=== PATIENT | female | born 1955 | race African-American/Black ===

== ENCOUNTER 2021-06-26 02:00 | Emergency (ER) | payer OTHER ==
[~2021-06-26] VITALS: Ht 167.6 cm; Wt 83.9 kg
[2021-06-26 02:08] VITALS: BP 149/79
--- NOTE | 2021-06-26 02:20 | NUR ---
PT BROUGHT TO BED 4 VIA WHEELCHAIR
--- NOTE | 2021-06-26 02:30 | NUR ---
PT. IS A 65 Y/O FEMALE THAT CAME INTO ED WITH C/O OF BURNING SENSATION UPON URINATION AND LOWER ABDOMINAL PAIN. PT. STATES THAT THE PAIN STARTED TONIGHT AND DESCRIBES IT "BURNING SENSATION WHEN URINATING." PT. RATES PAIN AT 8/10 ON THE PAIN SCALE AT THIS TIME. PT. ALSO STATES IT RADIATES TO HER LOWER BACK. DENIES N/V/D/FEVER. SKIN IS PINK/WARM/DRY; AAOX4 WITH EVEN AND STEADY GAIT; HR EVEN AND REGULAR; PT DENIES ANY FEVER, CP, SOB, OR COUGH AT THIS TIME; VSS; PATIENT POSITIONED FOR COMFORT; HOB ELEVATED; BEDRAILS UP X2; BED DOWN. ER MD MADE AWARE OF PT STATUS. MED HX: DENIES ALLERGIES: NKA
--- NOTE | 2021-06-26 02:45 | NUR ---
PT. AMBULATED TO BATHROOM WITH EVEN AND STEADY GAIT
[2021-06-26] MEDS ORDERED: CEPH-588 PO (02:59)
[2021-06-26] MEDS ORDERED: PHEN-1877 PO (02:59)
[2021-06-26] MEDS ORDERED: LIDOCAINE MPF 1% 5 ML ONE (03:00)
[2021-06-26] MEDS ORDERED: MAGNESIUM CITRATE 300 ML BTL PO ONE (03:00)
[2021-06-26] MEDS ORDERED: cefTRIAXone 1,000 MG VIAL ONE (03:00)
[2021-06-26] MEDS ORDERED: cefTRIAXone 1,000 MG in LIDOCAINE MPF 1% 2.1 ML IM ONE (03:00)
[2021-06-26 03:23] VITALS: BP 149/79
--- NOTE | 2021-06-26 03:23 | NUR ---
Patient discharged with v/s stable. Written and verbal after care instructions given and explained. Patient alert, oriented and verbalized understanding of instructions. Wheel Chair Assisted TO SISTER'S CAR. All questions addressed prior to discharge. ID band removed. Patient advised to follow up with PMD. Rx of KEFLEC AND PYRIDIUM given. Patient educated on indication of medication including possible reaction and side effects. Opportunity to ask questions provided and answered.
== END 2021-06-26 03:23 | disposition home or self-care (01) ==
LOC: MED 02:00
DX: K59.00 Constipation, unspecified (principal); R30.0 Dysuria; R35.0 Frequency of micturition; Z79.899 Other long term (current) drug therapy
CPT/HCPCS: 96372; 99283; J0696; J2001

== ENCOUNTER 2021-09-17 15:51 | Emergency (ER) | payer OTHER ==
[~2021-09-17] VITALS: Ht 167.6 cm; Wt 79.4 kg
[~2021-09-17 15:51] MED LIST: CEPH-588 PO; PHEN-1877 PO
[2021-09-17 15:57] VITALS: BP 113/65
[2021-09-17] MEDS ORDERED: ACETAMINOPHEN 325 MG TAB PO ONE (16:25)
[2021-09-17] MEDS ORDERED: MAGNESIUM HYDROXIDE 2400 MG/30 ML UDC PO ONE (16:25)
--- NOTE | 2021-09-17 16:46 | NUR ---
pt c/o generlalized weakness x2 days with poor po intake d/t nausea and no apetite. pt also reports no bm x1 week.
--- NOTE | 2021-09-17 17:25 | NUR ---
pt resting in [facility] pending ct and dispo.
[2021-09-17] MEDS ORDERED: KETOROLAC 30 MG/ML VIAL IVP ONE (18:00)
[2021-09-17 18:23] LABS: BASOPHILS % (AUTO) 0.4 % (0.0-2.0); EOSINOPHILS % (AUTO) 0.1 % (0.0-4.0); HEMATOCRIT 35.8 % (36-48); HEMOGLOBIN 11.8 g/dL (12.0-16.0); LYMPHOCYTES # (AUTO) 0.9 K/uL (2.5-16.5); LYMPHOCYTES % (AUTO) 14.4 % (20.5-51.1); MEAN CORPUSCULAR HEMOGLOBIN 29 pg (27-31); MEAN CORPUSCULAR HGB CONC 33 g/dL (33-37); MEAN CORPUSCULAR VOLUME 88.8 fL (80-94); MONOCYTES # (AUTO) 0.6 K/uL (0.8-1.0); MONOCYTES % (AUTO) 9.2 % (1.7-9.3); NEUTROPHILS # (AUTO) 4.9 K/uL (1.8-7.7); NEUTROPHILS % (AUTO) 75.9 % (42.2-75.2); PLATELET COUNT (AUTO) 235 K/uL (140-450); RED BLOOD CELL COUNT(AUTO) 4.03 MIL/uL (4.20-5.40); RED CELL DISTRIBUTION WIDTH 14.4 % (11.6-13.7); WHITE BLOOD COUNT (AUTO) 6.4 K/uL (4.8-10.8)
[2021-09-17 18:31] LABS: ALBUMIN 4.2 g/dL (3.4-5.0); ANION GAP 14.1 (8-16); CARBON DIOXIDE 29.9 mmol/L (21-32); CREATININE 1.4 mg/dL (0.6-1.3); MAGNESIUM 2.6 mg/dL (1.8-2.4); PHOSPHORUS 2.5 mg/dL (2.5-4.9); TOTAL BILIRUBIN 1.4 mg/dL (0.0-1.0)
--- NOTE | 2021-09-17 18:51 | NUR ---
PT TO BE ADMITTED UNABLE TO GIVE URINE AT THIS TIME. IV INSERTED TO RIGHT AC #20GUAGE MEDICATED FOR PAIN PER ORDER
[2021-09-17] MEDS ORDERED: POTASSIUM CHLORIDE 10 MEQ TABER PO ONE (19:05)
[2021-09-17] MEDS ORDERED: NACL 0.9% 1,000 ML IV ONE (19:05)
--- NOTE | 2021-09-17 19:25 | NUR ---
pt has eyes closed, opens to sound. equal rise and fall of chest wall. vss. pt is in stable condition. all needs met at this time. pt given extra blanket. bed locked in lowest position, side rails x2 for safety.
--- NOTE | 2021-09-17 21:30 | NUR ---
PT HAS EYES CLOSED, OPENS EYES TO SOUND. VSS. PT IS IN STABLE CONDITION. ALL NEEDS MET AT THIS TIME. BED LOCKED IN LOWEST POSITION, SIDE RAILS X2 FOR SAFETY.
[2021-09-17] MEDS ORDERED: BOWEL EVACUANT DRINK 4,000 ML PDS PO ONE (22:15)
--- NOTE | 2021-09-17 23:49 | NUR ---
pt had a bm. pt cleaned up, given clean gown and placed back in bed. pt on monitoring analyst. pt in stable condition. vss. all needs met at this time. bed locked in lowest position, side rails x2 for safety.
--- NOTE | 2021-09-18 | NUR ---
pt states she does not have to urinate. pt refused straight cath.
--- NOTE | 2021-09-18 00:28 | NUR ---
report given to NISA escalante from [facility] @ [phone]. pt is to go to [facility] and admit by .
--- NOTE | 2021-09-18 02:11 | NUR ---
pt has not drank the rest of golytly after first cup. woke pt up from sleep and explain to pt the importance of drinking the fluid to get rid of constipation as well the need to collect a UA. pt closed eyes. made aware, no further orders at this time.
[2021-09-18 03:05] VITALS: BP 120/50
--- NOTE | 2021-09-18 03:05 | NUR ---
Patient to be transferred to [facility]. Is being transferred due to insurance. Receiving facility has accepting physician and available space. ER physician has signed transfer form. Patient or responsible democrat has agreed to transfer and signed form. Patient belongings inventoried and will be sent with patient. Copy of nursing notes, lab reports, EKG, Physicians Orders and X-rays to be sent with patient. Report called to michelle escalante at receiving facility. [facility] has been called for transfer. ETA is 1hr.
== END 2021-09-18 03:05 | disposition short-term general hospital (02) ==
LOC: MED 15:51
DX: K52.9 Noninfective gastroenteritis and colitis, unspecified (principal); Z20.822 Contact with and (suspected) exposure to COVID-19; K59.00 Constipation, unspecified; E03.9 Hypothyroidism, unspecified; Z79.899 Other long term (current) drug therapy
CPT/HCPCS: 36415; 74176; 80053; 83605; 83690; 83735; 84100; 84484; 85025; 87426; 93005; 96361; 96374; 99285; J1885; J7030